=== PATIENT | female | born 1980 | race Caucasian/White ===

== ENCOUNTER 2021-07-20 12:54 | Emergency (ER) | payer OTHER, SELFPAY ==
[2021-07-20 13:16] VITALS: BP 106/74; PULSE 83; RESP 16; TEMP 36.3; O2SAT 100; BMI 26.6
[2021-07-20 14:24] VITALS: BP 98/61; PULSE 73; RESP 16; O2SAT 100
--- NOTE | 2021-07-20 15:13 | ED_ITS ---
HPI - Back Pain/Injury General Chief Complaint: Back Pain/Injury Stated Complaint: back pain lt side Time Seen by Provider: 07/20/21 14:47 History of Present Illness HPI Narrative: Patient is a erin 41-year-old female who presents with 10 days of ongoing back pain. It is pinpoint around rib number 2. It does not hurt with arm movement or breathing. But does radiate down and around the front She seen the chiropractor she has had massaging nothing seems to help. Patient has pinpoint pain. It has been there for 10 days. She gets muscle quivering on her chest sometimes. She calls it a contraction in her back. She has been doing heat. She is taking Flexeril and ibuprofen without significant relief. No significant shortness of breath or fever. She denies any injury. She denies any injury. She says she does lift weights but can not remember doing anything out of the ordinary. Related Data Home Medications Medication Instructions Recorded Confirmed cetirizine 10 mg tablet (Zyrtec) 10 mg PO DAILY PRN 11/26/20 07/13/21 escitalopram oxalate 20 mg tablet 20 mg PO DAILY 11/26/20 07/13/21 (Lexapro) Previous Rx's Medication Instructions Recorded ibuprofen 800 mg tablet 800 mg PO Q6-8H PRN #30 tab 11/26/20 cyclobenzaprine 10 mg tablet 10 mg PO TID PRN #30 tab 07/13/21 hydrocodone 5 mg-acetaminophen 325 1 tab PO Q6H PRN #10 tab 07/20/21 mg tablet methocarbamol 750 mg tablet 1,500 mg PO Q8H PRN #20 tab 07/20/21 Allergies Allergy/AdvReac Type Severity Reaction Status Date / Time No Known Drug Allergies Allergy Unverified 07/13/21 09:33 Review of Systems Review of Systems Narrative: GENERAL: Denies chills,fever HEENT: Denies throat pain RESPIRATORY: Denies dyspnea, cough, wheezing CARDIOVASCULAR: Denies chest pain, palpitations GASTROINTESTINAL: Denies nausea, vomiting MUSCULOSKELETAL: See HPI SKIN: No rash, no laceration, no pruritus NEUROLOGIC: Denies weakness, dizziness, headache, numbness 8 point review of systems is negative except for those stated above and HPI Patient History Medical History OCD (obsessive compulsive disorder) Surgical History Status post section (~2012) Status post cholecystectomy (~02/1998) Family History Father Heart disease Mental health disorder Mother No problems noted. Social History Smoking Status: Never smoker Smoking Status: Never smoker Exam Initial Vital Signs Initial Vital Signs: Vital Signs Temperature 97.4 F L 07/20/21 13:16 Pulse Rate 83 07/20/21 13:16 Respiratory Rate 16 07/20/21 13:16 Blood Pressure 106/74 07/20/21 13:16 Pulse Oximetry 100 07/20/21 13:16 GENERAL: Alert well-appearing 41-year-old female in no acute distress. HEENT: Head atraumatic,EOMI, pupils reactive, face symmetric, moist mucous membranes CARDIOVASCULAR: Regular rate and rhythm without murmurs, rubs or gallops. RESPIRATORY: Breath sounds equal bilaterally, no wheezes rales or rhonchi. BACK: Spasm and pain reproducible left rib 2. No vertebral tenderness or step- off. EXTREMITIES: Normal range of motion, no clubbing or edema. Neurovascularly intact NEUROLOGICAL: Alert and oriented x4. SKIN: Warm, dry, no laceration, no petechiae, no rashes or lesions. Course Orders Ordered: Discontinued Medications Ketorolac Tromethamine (Ketorolac 30 Mg/Ml Vial) 30 mg IM NOW ONE Stop: 07/20/21 15:13 Last Admin: 07/20/21 15:32 Dose: 30 mg Documented by: [email or web address] Vital Signs Vital signs: Vital Signs - 8 hr 07/20/21 13:16 07/20/21 14:24 Temperature 97.4 F L Pulse Rate 83 73 Respiratory Rate 16 16 Blood Pressure 106/74 98/61 Pulse Oximetry 100 100 MDM - Back Pain/Injury MDM Narrative Medical decision making narrative: Patient has been having pain ongoing for last 10 days. It is reproducible pinpoint. Bedside attempt at reducing her rib. Patient really had no improvement. Most likely muscle spasm. She denies any injury no need for imaging. She is frustrated that it is not getting any better. She has deep massage scheduled for this week she has to chiropractor appointments. We discussed topical ointments such as CBD and arnica cream, along with possibly acupuncture. If this continues may require more of a workup. Will switch up her medications for now. Discharge Plan Departure Patient Disposition: Home Clinical Impression: Thoracic back pain, Muscle spasm Instructions: DI for Back Spasm, Thoracic Back Pain Activity Restrictions/Additional Instructions: *You have been diagnosed with muscle spasm *What to do: You are doing all the right things. Continue to go to the chiropractor, try acupuncture may need physical therapy. Continue with saw his light stretching *Continue to take medications as directed--> [facility] Methocarbamol 1500 mg every 8 hours if needed for muscle spasm Ibuprofen 600 mg every 6 hours if needed for hblo-vj-oynvpboj pain [place] 1 tablet every 6 hours if needed for severe pain *Follow up with your primary care provider in 2-3 days or call [phone] *Return to ER if you should have increasing pain shortness of breath[or] any new, worsening or concerning symptoms CONTROLLED SUBSTANCE DISCHARGE (Narcotoic/benzodiazepine/Flexeril/Phenergan) 1. You have been prescribed narcotic medications, it does have acetaminophen/Tylenol/paracetamol in it, DO NOT TAKE MORE THAN 4,00mg in 24 hours of Tylenol. TRAMADOL DOES NOT CONTAIN TYLENOL 2. Please understand that we cannot provide further refills of narcotics, benzodiazepines or controlled substances through the ED and her pain management will need to be through your provider. 3. While on these medications you cannot drive or operate heavy machinery. 4. You cannot sign legal documents or perform any duties such as this. 5. As long as you're taking opiate pain medications he should also be taking a stool softener such as Colace, Dulcolax, MiraLAX or prune juice, to help avoid constipation. Prescriptions: New hydrocodone-acetaminophen 5-325 mg tablet 1 tab PO Q6H PRN (Reason: pain) Qty: 10 0RF methocarbamol 750 mg tablet 1,500 mg PO Q8H PRN (Reason: muscle spasm) Qty: 20 0RF No Action escitalopram oxalate [Lexapro] 20 mg tablet 20 mg PO DAILY 0RF cetirizine [Zyrtec] 10 mg tablet 10 mg PO DAILY PRN0RF ibuprofen 800 mg tablet 800 mg PO Q6-8H PRN (Reason: pain) Qty: 30 0RF cyclobenzaprine 10 mg tablet 10 mg PO TID PRN (Reason: back pain) Qty: 30 0RF Referrals: Damion Perez MD [Primary Care Provider] -
[2021-07-20] MEDS: KETOROLAC 30 MG/ML VIAL IM (15:32)
== END 2021-07-20 16:16 | disposition home or self-care (01) ==
PROVIDERS: Emergency Provider Emergency Medicine; PCP Internal Medicine
DX: M54.6 Pain in thoracic spine (principal); M62.830 Muscle spasm of back
CPT/HCPCS: 96372; 99283; J1885

== ENCOUNTER → 2021-08-12 10:32 | Outpatient (CLI) | payer OTHER, SELFPAY ==
[2021-08-12 11:33] LABS: Add Manual Diff / Slide Review NO; Basophils Absolute Auto 0 /uL (0-100); Basophils Percent Auto 0.5 % (0-2); Eosinophils Absolute Auto 0 /uL (0-450); Eosinophils Percent Auto 0.4 % (2-4); Hematocrit 38.5 % (36-46); Lymphocytes Absolute Auto 1500 /uL (1100-4500); Lymphocytes Percent Auto 30.6 % (25-40); Mean Corpuscular HGB Conc 33.7 % (30-36); Mean Corpuscular Volume 85.9 fL (80-100); Monocytes Absolute Auto 300 /uL (0-900); Monocytes Percent Auto 6.9 % (3-14); Neutrophils Absolute Auto 3000 /uL (1500-7000); Neutrophils Percent Auto 61.6 % (50-75); Platelet Count 207 X10^3/uL (150-400); Red Blood Cell Count 4.48 X10^6/uL (4.0-5.2); Red Cell Distribution Width 12.5 % (11.6-14.8); White Blood Cell Count 4.9 X10^3/uL (4.5-11.0)
[2021-08-12 11:42] LABS: Appearance Urine UA CLEAR; Bilirubin Urine UA NEGATIVE (NEGATIVE); Color Urine UA YELLOW; Glucose Urine UA NEGATIVE (Negative); Ketones Urine UA NEGATIVE (NEGATIVE); Leukocyte Esterase Urine UA NEGATIVE (NEGATIVE); Nitrite Urine UA NEGATIVE (Negative); Occult Blood Urine UA NEGATIVE (Negative); Protein Urine UA NEGATIVE (Negative); Specific Gravity Urine UA <=1.005 (1.000-1.035); Urobilinogen Urine UA 0.2 E.U./dL (0.2)
[2021-08-12 11:51] LABS: Alanine Aminotransferase 30 IU/L (<35); Albumin 4.8 g/dL (3.5-5.0); Albumin Globulin Ratio 1.6 (1.0-2.8); Alkaline Phosphatase 37 U/L (38-126); Aspartate Aminotransferase 36 IU/L (14-36); BUN Creatinine Ratio 19.3 (6-22); Bilirubin Total 0.6 mg/dL (0.2-1.3); Blood Urea Nitrogen 17 mg/dL (7-17); Calcium 9.1 mg/dL (8.4-10.2); Carbon Dioxide 30 mmol/L (22-32); Chloride 102 mmol/L (98-107); Cholesterol 206 mg/dL (140-199); Estimated Glomerular Filt Rate > 60 mL/min (>60); Glucose 102 mg/dL (70-100); HDL Cholesterol 57 mg/dL (40-60); HEMOLYSIS < 15 (0-50); LDL Cholesterol Calculated 133 mg/dL (<100); Potassium 4.3 mmol/L (3.4-5.1); Sodium 138 mmol/L (137-145); Total Protein 7.8 g/dL (6.3-8.2); Triglycerides 80 mg/dL (35-150)
[2021-08-12 11:54] LABS: Bacteria Urine None Seen; Culture Indicated Urine Cult Not Indicated; RBC Urine None Seen (0-5/HPF); Urine Comments Microscopic Normal; WBC Urine None Seen (0-5/HPF)
[2021-08-12 13:11] LABS: Free T4, Direct Thyroxine 0.86 ng/dL (0.78-2.19)
[2021-08-12 13:25] LABS: Thyroid Stimulating Hormone 1.42 uIU/mL (0.47-4.68)
== END ==
PROVIDERS: PCP Internal Medicine; Referring Provider Internal Medicine; Visit Provider Internal Medicine
DX: E03.9 Hypothyroidism, unspecified (principal); G47.10 Hypersomnia, unspecified; Z13.220 Encounter for screening for lipoid disorders; Z13.6 Encounter for screening for cardiovascular disorders; R35.89 Other polyuria
CPT/HCPCS: 36415; 80053; 80061; 81001; 84439; 84443; 85025

== ENCOUNTER → 2021-08-17 16:52 | Outpatient (CLI) | payer OTHER, SELFPAY ==
--- NOTE | 2021-08-17 16:54 | DI.RAD.S_ITS ---
PROCEDURE: XR THORACIC SPINE 3V INDICATIONS: persistent mid back pain TECHNIQUE: 3 views of the thoracic spine were acquired. COMPARISON: None. FINDINGS: Bones: No fractures or dislocations. No suspicious bony lesions. 12 pairs of ribs are noted, and appear intact where visualized. Mild degenerative changes noted in the midthoracic spine. Soft tissues: No paravertebral stripe thickening. IMPRESSION: Mild multilevel degenerative disc disease. No fracture. No acute osseous lesion. If symptoms and/or clinical suspicion for pathology persists, evaluation with MRI should be considered for further assessment. Dictated by: Shantel Del Castillo MD, PhD on 08/18/2021 at 12:17 Approved by: Shantel Del Castillo MD, PhD on 08/18/2021 at 12:19
== END ==
PROVIDERS: PCP Internal Medicine; Referring Provider Internal Medicine; Visit Provider Internal Medicine
DX: M51.34 Other intervertebral disc degeneration, thoracic region (principal); M54.9 Dorsalgia, unspecified
CPT/HCPCS: 72072

== ENCOUNTER 2022-01-29 12:32 | Emergency (ER) | payer OTHER, SELFPAY ==
[2022-01-29 12:37] VITALS: BP 147/105; PULSE 85; RESP 18; TEMP 36.6; O2SAT 100; BMI 26.6
[2022-01-29] MEDS: KETOROLAC 30 MG/ML VIAL IM (12:48)
--- NOTE | 2022-01-29 14:50 | ED_ITS ---
HPI - Extremity Problem <Tawnya Hansen, [facility] - Last Filed: 01/29/22 15:35> General Chief complaint: Extremity Problem,Nontraumatic Stated complaint: Severe pain sciatica on left side Time Seen by Provider: 01/29/22 14:35 Source: patient Mode of arrival: Ambulatory History of Present Illness HPI Narrative: This is a 41-year-old female presents to the emergency department with left- sided sciatica symptoms coming from her posterior left buttock and shoots down her left leg to her toes she says this happens after certain position changes and started flaring back up again yesterday after she twisted during a workout. She states this is likely piriformis syndrome and she has seen Dr. Perez about this. Patient states that she is been taking Percocet, and took the rest of her medication yesterday and now has run out, she saw Dr. Perez for her buttock pain last week and he diagnosed her with piriformis syndrome and gave her Percocet to use as needed, she states she is been taking ibuprofen with the Perc ocet and it has been helpful but now she is out in his requesting more. She denies any recent fall or trauma, denies any numbness or tingling, states that she has shooting pain from her posterior left buttock down her left leg without weakness, incontinence, groin numbness or tingling, for muscle weakness. Related Data Previous Rx's Medication Instructions Recorded ibuprofen 800 mg tablet 800 mg PO Q6-8H PRN pain #30 tabs 11/26/20 cetirizine 10 mg tablet (Zyrtec) 10 mg PO DAILY PRN allergy 11/12/21 symptoms #90 tabs escitalopram oxalate 20 mg tablet 20 mg PO DAILY #90 tabs 11/12/21 (Lexapro) methocarbamol 750 mg tablet 750 mg PO Q8H #30 tabs 01/25/22 oxycodone-acetaminophen 5 mg-325 See Rx Instructions PO Q4-6H PRN 01/25/22 mg tablet pain #20 tabs gabapentin 100 mg capsule 100 mg PO TID PRN nerve pain #20 01/29/22 caps methocarbamol 750 mg tablet 750 mg PO Q8H PRN spasms #14 tabs 01/29/22 oxycodone-acetaminophen 5 mg-325 1 tab PO TID PRN pain #14 tabs 01/29/22 mg tablet (Percocet) prednisone 20 mg tablet 20 mg PO DAILY 5 days #5 tabs 01/29/22 Allergies Allergy/AdvReac Type Severity Reaction Status Date / Time No Known Drug Allergies Allergy Verified 01/29/22 12:43 Review of Systems <DONNY Grove - Last Filed: 01/29/22 15:35> Review of Systems Narrative: Review of systems is negative for acute abnormalities unless otherwise noted in HPI Patient History <DONNY Grove - Last Filed: 01/29/22 15:35> Medical History OCD (obsessive compulsive disorder) Surgical History Anesthesia Status post section (~2012) Status post cholecystectomy (~02/1998) Family History Father Heart disease Mental health disorder Mother No problems noted. Grandfather Heart disease Grandmother Cancer Social History Smoking Status: Never smoker Smoking Status: Never smoker alcohol intake frequency: holidays/special occasions only Substance Use Type: does not use Exam <DONNY Grove - Last Filed: 01/29/22 15:35> Narrative Exam Narrative: Reviewed vitals signs and nursing notes. General: cooperative, comfortable, in no acute distress, well groomed HEENT: symmetrical facial expressions, moist mucous membranes MSK: moves all extremities, neurovascularly intact, no weakness, normal tone, bilateral lower extremities are equally strong, she is ambulatory, plantar extension and dorsiflexion present bilaterally without weakness, nontender over her lumbar spine, pain is exacerbated by certain positions and with leg lift. Skin: brisk capillary refill, without pallor or erythema Neuro: normal speech and cognition, A&O x3, ambulatory, clear speech Psych: mental status is grossly normal, congruent mood, normal affect, pleasant and cooperative Initial Vital Signs Initial Vital Signs: Vital Signs Temperature 97.8 F 01/29/22 12:37 Pulse Rate 85 01/29/22 12:37 Respiratory Rate 18 01/29/22 12:37 Blood Pressure 147/105 H 01/29/22 12:37 Pulse Oximetry 100 01/29/22 12:37 Oxygen Delivery Method 01/29/22 12:37 <Attila Cain DO - Last Filed: 01/29/22 16:20> Initial Vital Signs Initial Vital Signs: Vital Signs Temperature 97.8 F 01/29/22 12:37 Pulse Rate 85 01/29/22 12:37 Respiratory Rate 18 01/29/22 12:37 Blood Pressure 147/105 H 01/29/22 12:37 Pulse Oximetry 100 01/29/22 12:37 Oxygen Delivery Method 01/29/22 12:37 Course <DONNY Grove - Last Filed: 01/29/22 15:35> Orders Ordered: Discontinued Medications Gabapentin (Gabapentin 100 Mg Capsule) 100 mg PO NOW ONE Stop: 01/29/22 14:43 Last Admin: 01/29/22 15:05 Dose: 100 mg Documented By: ANNE Ketorolac Tromethamine (Ketorolac 30 Mg/Ml Vial) 30 mg IM NOW ONE Stop: 01/29/22 12:47 Last Admin: 01/29/22 12:48 Dose: 30 mg Documented By: TAI Methocarbamol (Methocarbamol 500 Mg Tablet) 500 mg PO NOW ONE Stop: 01/29/22 14:43 Last Admin: 01/29/22 15:04 Dose: 500 mg Documented By: ANNE Oxycodone/Acetaminophen (Oxycodone/Acetaminophen 5/325 Tablet) 1 tab PO NOW ONE Stop: 01/29/22 14:45 Last Admin: 01/29/22 15:04 Dose: 1 tab Documented By: ANNE Prednisone (Prednisone 20 Mg Tablet) 40 mg PO NOW ONE Stop: 01/29/22 14:43 Last Admin: 01/29/22 15:04 Dose: 40 mg Documented By: BT Vital Signs Vital signs: Vital Signs - 8 hr 01/29/22 12:37 01/29/22 16:00 Temperature 97.8 F Pulse Rate 85 Pulse Rate [Bilateral Dorsalis Pedis] 72 Respiratory Rate 18 Blood Pressure 147/105 H Pulse Oximetry 100 Oxygen Delivery Method Room Air <Attila Cain DO - Last Filed: 01/29/22 16:20> Orders Ordered: Discontinued Medications Gabapentin (Gabapentin 100 Mg Capsule) 100 mg PO NOW ONE Stop: 01/29/22 14:43 Last Admin: 01/29/22 15:05 Dose: 100 mg Documented By: BT Ketorolac Tromethamine (Ketorolac 30 Mg/Ml Vial) 30 mg IM NOW ONE Stop: 01/29/22 12:47 Last Admin: 01/29/22 12:48 Dose: 30 mg Documented By: TAI Methocarbamol (Methocarbamol 500 Mg Tablet) 500 mg PO NOW ONE Stop: 01/29/22 14:43 Last Admin: 01/29/22 15:04 Dose: 500 mg Documented By: BT Oxycodone/Acetaminophen (Oxycodone/Acetaminophen 5/325 Tablet) 1 tab PO NOW ONE Stop: 01/29/22 14:45 Last Admin: 01/29/22 15:04 Dose: 1 tab Documented By: BT Prednisone (Prednisone 20 Mg Tablet) 40 mg PO NOW ONE Stop: 01/29/22 14:43 Last Admin: 01/29/22 15:04 Dose: 40 mg Documented By: BT Vital Signs Vital signs: Vital Signs - 8 hr 01/29/22 12:37 01/29/22 16:00 Temperature 97.8 F Pulse Rate 85 Pulse Rate [Bilateral Dorsalis Pedis] 72 Respiratory Rate 18 Blood Pressure 147/105 H Pulse Oximetry 100 Oxygen Delivery Method Room Air MDM - Extremity (Nontraumatic) <DONNY Grove - Last Filed: 01/29/22 15:35> MDM Narrative Medical decision making narrative: Patient presents with 3 days of worsening sciatica symptoms in her left leg which started at her posterior left buttock and shoots down her left leg to her toes with certain position changes that patient states she exacerbated with a twisting motion yesterday during her workout. She saw her primary care provider Dr. Perez who diagnosed her with piriformis syndrome and gave her prescription of muscle relaxers and Percocet which patient has run out of and is requesting more. Patient is without, trauma, and is afebrile. Given history and exam, suspect likely musculoskeletal etiology, they are nontoxic appearing with no ove rt risk factors for epidural hematoma or abscess. This is most likely lumbar radiculopathy with sciatica although patient does not have low back pain or tenderness over her lumbar spine. She is been using Motrin and Tylenol with her Percocet and states that it helped but her pain remains ongoing. Patient's symptoms improve with above therapies. I encouraged her to follow-up with Dr. Perez for referral to physical therapy for an evaluation. No overt evidence of critical cord compression and has a nonfocal near exam. Neurovascularly intact distally, no evidence of infection, peritoneal signs, hypertensive crisis, or abdominal pain with low suspicion for AAA. No weakness, incontinence, neurovascular or sensation changes, no concerning findings for caudal equina syndrome, lumbar fracture, without paresthesia, neuropathic pain, meningeal signs and fever. This could be a herniated disk, paraspinal or other muscle strain, ligamental injury, arthritic, nephrolithiasis/pyelonephritis, epidural abscess, chronic pain, and other diagnosis? considered less likely. Discharge Plan Departure Patient Disposition: Home Clinical Impression: Sciatica of left side without back pain Instructions: Sciatica, Neuropathic Pain, Lumbar Radiculopathy Activity Restrictions/Additional Instructions: *You have been diagnosed with nerve pain shooting down your left leg from your left hip. This is most likely sciatica, often times it comes from the lumbar nerve root, since you do not have low back pain, this is good news. Please continue taking ibuprofen 800 mg every 8 hours with food and water, take the steroid 1st thing in the morning with food and water and use topical pain adjunct if they are helpful. Please use the gabapentin for sharp nerve pain or when it is shooting, this can cause drowsiness, so does Percocet and methocarbamol so please combine carefully. Ice and heat might be helpful as well, try to avoid over straining, overdoing, and exertional activities while it is inflamed. Please follow-up with Dr. Perez and ask him for a referral to physical therapy for an evaluation. I hope you feel better soon, please take a stool softener while taking opiate medications. *What to do: *Please continue to take your regular medications as directed. [x] New medication prescriptions sent to your pharmacy: [[facility] ] [ ] New medication written as a paper prescription [ ] No new medications given *Please follow up with your primary care provider in 2-3 days, call for an appointment. Let them know you were seen in the Emergency Department and that we asked that you be seen for follow-up. We will electronically transmit a record of today's note if your PCP is in our system *If you do not have a primary care provider please contact [phone] to establish care with one of the [facility] primary care providers. *Return to Emergency Department if you should have any new, worsening, or concerning symptoms, such as [fever greater than 101F, chills, worsening pain, persistent vomiting or other bothersome symptoms]. Prescriptions: New oxycodone-acetaminophen [Percocet] 5-325 mg tablet 1 tab PO TID PRN (Reason: pain) Qty: 14 0RF methocarbamol 750 mg tablet 750 mg PO Q8H PRN (Reason: spasms) Qty: 14 0RF gabapentin 100 mg capsule 100 mg PO TID PRN (Reason: nerve pain) Qty: 20 0RF prednisone 20 mg tablet 20 mg PO DAILY 5 Days Qty: 5 0RF Rx Instructions: start tomorrow No Action ibuprofen 800 mg tablet 800 mg PO Q6-8H PRN (Reason: pain) Qty: 30 0RF escitalopram oxalate [Lexapro] 20 mg tablet 20 mg PO DAILY Qty: 90 3RF cetirizine [Zyrtec] 10 mg tablet 10 mg PO DAILY PRN (Reason: allergy symptoms) Qty: 90 3RF oxycodone-acetaminophen 5-325 mg tablet See Rx Instructions PO Q4-6H PRN (Reason: pain) Qty: 20 0RF Rx Instructions: 1-2 TABS PO Q4-6H PRN; methocarbamol 750 mg tablet 750 mg PO Q8H Qty: 30 1RF Referrals: Damion Perez MD [Primary Care Provider] - Visit Report Forms: Patient Portal/API <Attila Cain, DO - Last Filed: 01/29/22 16:20> [facility] Dr Cain Co-Sign Statement: I was available for consultation during this patient's emergency department visit. This chart is signed by myself for administrative purposes only. I did not have direct contact with this patient during this visit. They were seen independently by the APC.
[2022-01-29] MEDS: predniSONE 20 MG TABLET 40 MG PO (15:04)
[2022-01-29] MEDS: methocarbamoL 500 MG TABLET PO (15:04)
[2022-01-29] MEDS: OXYCODONE/ACETAMINOPHEN 5/325 TABLET 1 TAB PO (15:04)
[2022-01-29] MEDS: GABAPENTIN 100 MG CAPSULE PO (15:05)
[2022-01-29 16:00] VITALS: PULSE 72
== END 2022-01-29 16:03 | disposition home or self-care (01) ==
PROVIDERS: Emergency Provider Nurse Practitioner Critical Care Medicine; PCP Internal Medicine
DX: M54.32 Sciatica, left side (principal)
CPT/HCPCS: 96372; 99283; J1885

== ENCOUNTER 2022-06-02 10:52 | Emergency (ER) | payer OTHER, SELFPAY ==
--- NOTE | 2022-06-02 11:38 | DI.CT.S_ITS ---
PROCEDURE: CT HEAD/BRAIN WO CON INDICATIONS: head injury TECHNIQUE: Noncontrast 4.5 mm thick angled axial sections acquired from the foramen magnum to the vertex, with coronal and sagittal reformats. For radiation dose reduction, the following was used: automated exposure control, adjustment of mA and/or kV according to patient size. COMPARISON: None. FINDINGS: Image quality: Excellent. CSF spaces: Basal cisterns are patent. No extra-axial fluid collections. Ventricles are normal in size and shape. Brain: No midline shift. No intracranial masses or hemorrhage. Godinez-white matter interface is normal. Skull and face: Calvarium and visualized facial bones are intact, without suspicious lesions. Sinuses: Visualized sinuses and mastoids are clear. IMPRESSION: No acute intracranial hemorrhage is seen. No acute intracranial process is seen. Dictated by: Vidal Fitch M.D. on 06/02/2022 at 11:06 Approved by: Vidal Fitch M.D. on 06/02/2022 at 11:07
[2022-06-02 11:40] VITALS: BP 123/81; PULSE 43; RESP 18; TEMP 36.3; O2SAT 100; BMI 25.8
--- NOTE | 2022-06-02 13:08 | ED.HEATRA ---
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 Patient states that when she awoke she was not able to move anything in laid there fearing she was paralyzed for approximately 10 seconds. She states that she has a significant headache, denies midline neck pain but endorses bilateral soft tissue tenderness and soreness. Denies acute vision changes but states that everything feels slow and foggy. Endorses nausea without vomiting, has not had history of head injuries in the past. Related Data Previous Rx's Medication Instructions Recorded ibuprofen 800 mg tablet 800 mg PO Q6-8H PRN pain #30 tabs 11/26/20 cetirizine 10 mg tablet (Zyrtec) 10 mg PO DAILY PRN allergy 11/12/21 symptoms #90 tabs escitalopram oxalate 20 mg tablet 20 mg PO DAILY #90 tabs 11/12/21 (Lexapro) methocarbamol 750 mg tablet 750 mg PO Q8H #30 tabs 01/25/22 oxycodone-acetaminophen 5 mg-325 See Rx Instructions PO Q4-6H PRN 01/25/22 mg tablet pain #20 tabs gabapentin 100 mg capsule 100 mg PO TID PRN nerve pain #20 01/29/22 caps methocarbamol 750 mg tablet 750 mg PO Q8H PRN spasms #14 tabs 01/29/22 oxycodone-acetaminophen 5 mg-325 1 tab PO TID PRN pain #14 tabs 01/29/22 mg tablet (Percocet) dexamethasone 4 mg tablet 8 mg PO .once #2 tabs 06/02/22 methocarbamol 750 mg tablet 750 mg PO Q8H PRN muscle spasm #30 06/02/22 tabs ondansetron HCl 4 mg tablet 4 mg PO Q8HR PRN nausea and 06/02/22 vomiting 3 days #10 tabs Allergies Allergy/AdvReac Type Severity Reaction Status Date / Time No Known Drug Allergies Allergy Verified 01/29/22 12:43 Review of Systems <DONNY Grove - Last Filed: 06/02/22 15:08> Review of Systems ROS Unobtainable: All systems reviewed & are unremarkable except as noted in HPI and below Patient History <DONNY Grove - Last Filed: 06/02/22 15:08> Medical History OCD (obsessive compulsive disorder) Surgical History Anesthesia Status post section (~2012) Status post cholecystectomy (~02/1998) Family History Father Heart disease Mental health disorder Mother No problems noted. Grandfather Heart disease Grandmother Cancer Social History Smoking Status: Never smoker Smoking Status: Never smoker alcohol intake frequency: holidays/special occasions only Substance Use Type: does not use Exam <DONNY Grove - Last Filed: 06/02/22 15:08> Narrative Exam Narrative: Reviewed vitals signs and nursing notes. General: cooperative, in no acute distress, well groomed calm, HEENT: symmetrical facial expressions, moist mucous membranes, neck is supple, PERRLA contusion to the occipital over scalp without skull depression, palpable fracture, hematoma, cervical spine tenderness to palpation, patient has full range of motion of her neck and spine. CV: regular rate and rhythm, warm extremities Respiratory: Without abnormal breath sounds, normal work of breathing, without tachypnea, hypoxia. GI: abdomen soft, nontender to palpation in all quadrants, nondistended, without masses, rebound tenderness or CVA tenderness bilaterally. MSK: moves all extremities, neurovascularly intact, no weakness, normal t, Tenderness to bilateral trapezius, without weaknessone Skin: brisk capillary refill, without rash or wound Neuro: normal speech and cognition, A&O x3, ambulatory, clear speech Initial Vital Signs Initial Vital Signs: Vital Signs Temperature 97.4 F L 06/02/22 11:40 Pulse Rate 43 L 06/02/22 11:40 Respiratory Rate 18 06/02/22 11:40 Blood Pressure 123/81 06/02/22 11:40 Pulse Oximetry 100 06/02/22 11:40 Oxygen Delivery Method Room Air 06/02/22 11:40 <Rayne Kline DO - Last Filed: 06/02/22 19:34> Initial Vital Signs Initial Vital Signs: Vital Signs Temperature 97.4 F L 06/02/22 11:40 Pulse Rate 43 L 06/02/22 11:40 Respiratory Rate 18 06/02/22 11:40 Blood Pressure 123/81 06/02/22 11:40 Pulse Oximetry 100 06/02/22 11:40 Oxygen Delivery Method Room Air 06/02/22 11:40 Course <DONNY Grove - Last Filed: 06/02/22 15:08> Orders Ordered: ED Orders 06/02/22 11:38 CT head/brain wo con Stat Discontinued Medications Acetaminophen (Acetaminophen 325 Mg Tablet) 650 mg PO NOW ONE Stop: 06/02/22 12:32 Last Admin: 06/02/22 13:53 Dose: 650 mg Documented By: RB Ketorolac Tromethamine (Ketorolac 10 Mg Tablet) 10 mg PO NOW ONE Stop: 06/02/22 12:32 Last Admin: 06/02/22 13:53 Dose: 10 mg Documented By: RB Lidocaine (Lidocaine Patch 1 Each Adh..Patch) 1 each TOP NOW ONE Stop: 06/02/22 12:32 Last Admin: 06/02/22 13:52 Dose: 1 each Documented By: RB Ondansetron HCl (Ondansetron 4 Mg Odt) 4 mg SL NOW ONE Stop: 06/02/22 12:32 Last Admin: 06/02/22 13:53 Dose: 4 mg Documented By: RB Vital Signs Vital signs: Vital Signs - 8 hr 06/02/22 11:40 06/02/22 13:14 Temperature 97.4 F L Pulse Rate 43 L 46 L Respiratory Rate 18 Blood Pressure 123/81 111/73 Pulse Oximetry 100 100 Oxygen Delivery Method Room Air Room Air <Rayne Kline DO - Last Filed: 06/02/22 19:34> Orders Ordered: ED Orders 06/02/22 11:38 CT head/brain wo con Stat Discontinued Medications Acetaminophen (Acetaminophen 325 Mg Tablet) 650 mg PO NOW ONE Stop: 06/02/22 12:32 Last Admin: 06/02/22 13:53 Dose: 650 mg Documented By: RB Ketorolac Tromethamine (Ketorolac 10 Mg Tablet) 10 mg PO NOW ONE Stop: 06/02/22 12:32 Last Admin: 06/02/22 13:53 Dose: 10 mg Documented By: RB Lidocaine (Lidocaine Patch 1 Each Adh..Patch) 1 each TOP NOW ONE Stop: 06/02/22 12:32 Last Admin: 06/02/22 13:52 Dose: 1 each Documented By: RB Ondansetron HCl (Ondansetron 4 Mg Odt) 4 mg SL NOW ONE Stop: 06/02/22 12:32 Last Admin: 06/02/22 13:53 Dose: 4 mg Documented By: RB Vital Signs Vital signs: Vital Signs - 8 hr 06/02/22 11:40 06/02/22 13:14 Temperature 97.4 F L Pulse Rate 43 L 46 L Respiratory Rate 18 Blood Pressure 123/81 111/73 Pulse Oximetry 100 100 Oxygen Delivery Method Room Air Room Air MDM - Head Injury <CELIA GroveP - Last Filed: 06/02/22 15:08> Imaging Data CT scan - head: Radiologist's Impression: Signed Patient: Beth Peña MR#: [id number] : 1980 Acct:[id number] Age/Sex: 42 / F Date of Service: 06/02/22 Loc: ED Accession Number: [id number] ?? Procedure: CT head/brain wo con Ordering Provider: Rayne Kline D.O. PROCEDURE:? CT HEAD/BRAIN WO CON ? INDICATIONS:? head injury ? TECHNIQUE:? Noncontrast 4.5 mm thick angled axial sections acquired from the foramen magnum to the vertex, with coronal and sagittal reformats.? For radiation dose reduction, the following was used:? automated exposure control, adjustment of mA and/or kV according to patient size.? ? COMPARISON:? None. ? FINDINGS:? Image quality:? Excellent.? ? CSF spaces:? Basal cisterns are patent.? No extra-axial fluid collections.? Ventricles are normal in size and shape.? ? Brain:? No midline shift.? No intracranial masses or hemorrhage.? Godinez-white matter interface is normal.? ? Skull and face:? Calvarium and visualized facial bones are intact, without suspicious lesions.? ? Sinuses:? Visualized sinuses and mastoids are clear.? ? IMPRESSION:? No acute intracranial hemorrhage is seen.? ? No acute intracranial process is seen.? ? ? Dictated by: Vidal Fitch M.D. on 06/02/2022 at 11:06 ? ? Approved by: Vidal Fitch M.D. on 06/02/2022 at 11:07 ? MDM Narrative Medical decision making narrative: Chief Complaint: head ijury Independent historian: Patient Differential diagnoses include but are not limited to: Concussion, whiplash, intracranial hemorrhage, skull fracture, ligamental injury, muscular sprain/strain I have independently reviewed the patient's vital signs and nursing notes as well as prior records if available. Pertinent lab findings reviewed: No lab work is indicated today Pertinent Imaging reviewed: CT have ruled out via [place] CT rule, nexus criteria ruled out for C-spine CT, CT head ordered due to exam of patient was concerns for intracranial injury CT head without acute intracranial process, contusion palpable to the occiput of her skull only without fluctuance Course of care: Medications for concussion and pain ordered at 1230 for patient's symptoms, At 13:45, patient's medications were not available yet, ask for nursing care to please treat the patient for her pain when available Patient's pain medication was given at 13:53 At 14:15, she reports feeling better but still has considerable brain fog, headache, has slow speech, and is ambulatory with steady gait onto occasions. She wishes to go home, does not have nausea vomiting. I have prescribed for her dexamethasone as well but nursing staff is not available to treat her with this at this time, we will prescribe this follow-up with her primary care provider if she has ongoing symptoms after 2 days. She was provided up-to-date information about return to activity and return to school/intellectual stimulation and understands to not progress her activity level until she is symptom-free. CT head is negative for acute intracranial abnormality, on exam, no focal neuro deficit This [id number] Social considerations that may affect disposition: none Questions are addressed and there is agreement with the plan and for follow-up. Patient is appropriate for outpatient management. MIPS: This encounter doesn't have any diagnosis' associated with MIPS criteria. Discharge Plan Departure Patient Disposition: Home Clinical Impression: Work related injury Closed head injury Qualifiers: Encounter type: initial encounter Qualified Code(s): S09.90XA - Unspecified injury of head, initial encounter Concussion with loss of consciousness Qualifiers: Encounter type: initial encounter Qualified Code(s): S06.0X9A - Concussion with loss of consciousness of unspecified duration, initial encounter Acute whiplash injury Qualifiers: Encounter type: initial encounter Qualified Code(s): S13.4XXA - Sprain of ligaments of cervical spine, initial encounter Instructions: Whiplash, Concussion, Closed Head Injury Activity Restrictions/Additional Instructions: *You have been diagnosed with a head injury with concussion. The CT scan does not show acute fracture bleeding in your brain or any dangerous evidence of head injury. You certainly have a concussion, and you have significant symptoms with a large bump. I encourage you to take the next 2 days off work and use plenty of caution with progression of your activity level both intellectually and physically. Remember to keep your symptoms at a minimum by decreasing activity and stimulation. I am sorry that this happened, I am glad that you did not her yourself worse than you did. It may take your week or longer to start feeling better from whiplash part. I have given you some muscle relaxers to use as needed if your whiplash is terrible and is contributing your headache. Please use Tylenol and ibuprofen in conjunction every 6 hours to treat your pain and symptoms. You will likely not need more Zofran but if you have nausea, then it is certainly okay to take. Focused on staying hydrated and calm. I hope that you feel better as soon as possible. 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 :) [id number] *What to do: *Please continue to take your regular medications as directed. [ ] New medication prescriptions sent to your pharmacy: [ ] [ ] New medication written as a paper prescription [x ] No new medications given *Please follow up with your primary care provider in 2-3 days, call for an appointment. Let them know you were seen in the Emergency Department and that we asked that you be seen for follow-up. We will electronically transmit a record of today's note if your PCP is in our system *If you do not have a primary care provider please contact [phone] to establish care with one of the [facility] primary care providers. *Return to Emergency Department if you should have any new, worsening, or concerning symptoms, such as [fever greater than 101F, chills, worsening pain, persistent vomiting or other bothersome symptoms]. Prescriptions: New methocarbamol 750 mg tablet 750 mg PO Q8H PRN (Reason: muscle spasm) Qty: 30 0RF ondansetron HCl 4 mg tablet 4 mg PO Q8HR PRN (Reason: nausea and vomiting) 3 Days Qty: 10 0RF dexamethasone 4 mg tablet 8 mg PO .once Qty: 2 0RF No Action ibuprofen 800 mg tablet 800 mg PO Q6-8H PRN (Reason: pain) Qty: 30 0RF escitalopram oxalate [Lexapro] 20 mg tablet 20 mg PO DAILY Qty: 90 3RF cetirizine [Zyrtec] 10 mg tablet 10 mg PO DAILY PRN (Reason: allergy symptoms) Qty: 90 3RF oxycodone-acetaminophen 5-325 mg tablet See Rx Instructions PO Q4-6H PRN (Reason: pain) Qty: 20 0RF Rx Instructions: 1-2 TABS PO Q4-6H PRN; methocarbamol 750 mg tablet 750 mg PO Q8H Qty: 30 1RF oxycodone-acetaminophen [Percocet] 5-325 mg tablet 1 tab PO TID PRN (Reason: pain) Qty: 14 0RF methocarbamol 750 mg tablet 750 mg PO Q8H PRN (Reason: spasms) Qty: 14 0RF gabapentin 100 mg capsule 100 mg PO TID PRN (Reason: nerve pain) Qty: 20 0RF Referrals: Damion Perez MD [Primary Care Provider] - Stand Alone Forms: Patient Portal/API <Rayne Kline DO - Last Filed: 06/02/22 19:34> Cosign ED Attending Stevenature Attestation: I was immediately available in the department for consultation.
[2022-06-02 13:14] VITALS: BP 111/73; PULSE 46; O2SAT 100
[2022-06-02] MEDS: LIDOCAINE PATCH 1 EACH ADH..PATCH TOP (13:52)
[2022-06-02] MEDS: KETOROLAC 10 MG TABLET PO (13:53)
[2022-06-02] MEDS: ACETAMINOPHEN 325 MG TABLET 650 MG PO (13:53)
[2022-06-02] MEDS: ONDANSETRON 4 MG ODT SL (13:53)
== END 2022-06-02 14:10 | disposition home or self-care (01) ==
PROVIDERS: Emergency Provider Nurse Practitioner Critical Care Medicine; PCP Internal Medicine
DX: S06.0X9A Concussion with loss of consciousness of unspecified duration, initial encounter (principal); S13.4XXA Sprain of ligaments of cervical spine, initial encounter; W18.30XA Fall on same level, unspecified, initial encounter; Y99.0 Civilian activity done for income or pay
CPT/HCPCS: 70450; 99283; 99284

== ENCOUNTER → 2022-10-25 | Outpatient (CLI) | payer OTHER, SELFPAY ==
--- NOTE | 2022-10-25 16:24 | DI.RAD.S_ITS ---
PROCEDURE: XR CERVICAL SPINE 2V OR 3V INDICATIONS: cervical radiculopathy TECHNIQUE: 3 view(s) of the cervical spine were acquired. COMPARISON: [facility], CR, XR THORACIC SPINE 3V, 08/17/2021, 16:55. FINDINGS: Bones: No fractures or dislocations to the T1 level. The lateral masses of C1 appear intact on the odontoid view. No suspicious bony lesions. Loss of lordosis which could be related to muscle spasm, rigidity or simply positional. Mild disc height loss at the C3-C4, C5-C6 and C6-C7 levels. Soft tissues: No prevertebral soft tissue swelling. IMPRESSION: Loss of lordosis and mild multilevel cervical spine disc degeneration. Dictated by: Dylan Mabry RR Interpreted: Armani Allen MD on 10/25/2022 at 20:59 Transcribed by: CARRILLO on 10/26/2022 at 8:19 Approved by: Armani Allen M.D. on 11/03/2022 at 1:56
[2022-10-25 17:11] LABS: Appearance Urine UA CLEAR; Bilirubin Urine UA NEGATIVE (NEGATIVE); Color Urine UA YELLOW; Glucose Urine UA NEGATIVE (Negative); Ketones Urine UA NEGATIVE (NEGATIVE); Leukocyte Esterase Urine UA NEGATIVE (NEGATIVE); Nitrite Urine UA NEGATIVE (Negative); Occult Blood Urine UA NEGATIVE (Negative); Protein Urine UA NEGATIVE (Negative); Specific Gravity Urine UA >=1.030 (1.000-1.035); Urobilinogen Urine UA 0.2 E.U./dL (0.2)
[2022-10-25 17:15] LABS: pH Urine UA 5.5 (4.5-8.0)
[2022-10-25 18:19] LABS: Alanine Aminotransferase 23 IU/L (<35); Albumin 4.2 g/dL (3.5-5.0); Albumin Globulin Ratio 1.2 (1.0-2.8); Alkaline Phosphatase 38 U/L (38-126); Aspartate Aminotransferase 36 IU/L (14-36); BUN Creatinine Ratio 19.1 (6-22); Bilirubin Total 0.6 mg/dL (0.2-1.3); Blood Urea Nitrogen 17 mg/dL (7-17); Calcium 9.1 mg/dL (8.4-10.2); Carbon Dioxide 27 mmol/L (22-32); Chloride 103 mmol/L (98-107); Estimated Glomerular Filt Rate > 60 mL/min (>60); Globulin 3.4 g/dL (1.7-4.1); Glucose 76 mg/dL (70-100); HEMOLYSIS < 15 (0-50); Potassium 3.7 mmol/L (3.4-5.1); Sodium 138 mmol/L (137-145); Total Protein 7.6 g/dL (6.3-8.2)
== END ==
PROVIDERS: PCP Internal Medicine; Referring Provider Internal Medicine; Visit Provider Internal Medicine
DX: M50.11 Cervical disc disorder with radiculopathy, high cervical region (principal); R35.89 Other polyuria
CPT/HCPCS: 36415; 72040; 80053; 81003

== ENCOUNTER → 2023-04-14 11:15 | Outpatient (CLI) | payer OTHER, SELFPAY ==
--- NOTE | 2023-04-14 11:16 | DI.MG.S_ITS ---
BILATERAL DIGITAL SCREENING MAMMOGRAM 3D/2D WITH CAD: 04/14/2023 CLINICAL: Routine screening. Family history of breast cancer. No prior exams were available for comparison. Both breasts are heterogeneously dense, which may obscure small masses (category c / 51-75% glandular tissue). Current study was also evaluated with a Computer Aided Detection (CAD) system. No significant masses, calcifications, or other findings are seen in either breast. IMPRESSION: NEGATIVE There is no mammographic evidence of malignancy. A 1 year screening mammogram is recommended. Based on the Tyrer Cuzick model (a risk assessment model) the patient's lifetime risk is 18.7% and her 10 year risk is 3.3%. According to the ACR, ACS, and NCCN guidelines, an annual breast MRI exam along with mammogram is recommended if the patient's lifetime risk is 20% or greater. This exam was interpreted at Station ID: [id number]. NOTE: For mammograms, a report in lay terms will be sent to the patient. Approximately 15% of breast malignancies will not be visualized mammographically. In the management of a palpable breast mass, a negative mammogram must not discourage biopsy of a clinically suspicious lesion. Electronically Signed By: Kayla villagomez/mary alice:04/19/2023 10:08:13 letter sent: Normal Exam ACR BI-RADS Category 1: Negative [id number]
== END ==
LOC: MAMMO 11:15
PROVIDERS: PCP Internal Medicine; Referring Provider Internal Medicine; Visit Provider Internal Medicine
DX: Z12.31 Encounter for screening mammogram for malignant neoplasm of breast (principal); Z80.3 Family history of malignant neoplasm of breast; R92.333 Mammographic heterogeneous density, bilateral breasts
CPT/HCPCS: 77063; 77067

== ENCOUNTER 2023-08-22 13:00 | Day surgery (SDC) | payer OTHER, SELFPAY ==
[2023-08-22] MEDS: LACTATED RINGERS 1,000 ML 42 ML IV ×2 (13:20→15:13)
[2023-08-22 13:28] VITALS: BP 110/69; PULSE 53; RESP 17; TEMP 36.7; O2SAT 100; BMI 28.1
--- NOTE | 2023-08-22 14:07 | PM.PREOP ---
Pre-operative Note COVID-19 COVID-19 status: Not tested Interval Note History & Physical reviewed/Exam performed by Physician: Yes Changes to H&P: No ASA Class (for procedural sedation): II
[2023-08-22] MEDS: ONABOTULINUMTOXINA 100 UNIT VIAL 40 UNIT INJ (14:37)
[2023-08-22] MEDS: BUPIVACAINE 0.5% W/ EPI (PF) 10 ML VIAL INJ (14:40)
--- NOTE | 2023-08-22 14:46 | PM.OP.1 ---
Operative Date/Time/Diagnoses Date of procedure: 08/22/23 Time of procedure: 14:46 Pre-op diagnosis: Rectal bleeding Post-op diagnosis: same (Posterior midline anal fissure) Procedure & Clinicians Procedure: Examination under anesthesia Injection of botulinum toxin into the anal sphincter muscle Same procedure as scheduled: Yes Surgeon: Mert Hunt Anesthesia Type: MAC +/- Operative Notes Procedure in detail: The patient was brought to the operating room and monitored anesthesia was induced. She was positioned in the lithotomy position. The perineum was prepped and draped in the usual fashion and a time-out was performed. A digital rectal exam was performed with a well lubricated finger. No masses were palpated in the sphincter tone was only slightly elevated from normal. Next 2 fingers were inserted to further dilate sphincter. The Hill-Wasserman retractor was inserted and the anoderm was inspected. There was a clear full-thickness posterior midline anal fissure measuring a proximally 6 mm in length. No other abnormalities were seen in the distal rectum and anal canal. At this point we injected Marcaine into the anoderm around the fissure and 20 units of botulinum toxin were injected into the left side of the anal sphincter muscle and 20 units of botulinum toxin were injected into the right side of the anal sphincter muscle. A little more Marcaine was injected. Dressings were applied. The patient was awakened and brought to recovery room. EBL: 5 mL Specimen: None Findings: Small posterior midline fissure Post-operative Condition: stable Disposition: PACU
[2023-08-22 14:50] VITALS: BP 100/51; PULSE 69; RESP 26; TEMP 36.5; O2SAT 99
[2023-08-22 15:24] VITALS: BP 115/77; PULSE 48; RESP 16; O2SAT 98
== END 2023-08-22 15:45 | disposition home or self-care (01) ==
PROVIDERS: PCP Internal Medicine; Referring Provider Surgery; Visit Provider Surgery
PROC: (CPT 45990; principal; 2023-08-22 13:45)
DX: K60.2 Anal fissure, unspecified (principal)
CPT/HCPCS: 46505; 81025; J0585; J2704

== ENCOUNTER 2023-09-15 11:31 | Day surgery (SDC) | payer OTHER, SELFPAY ==
[2023-09-14 10:55] VITALS: BMI 28.1
[2023-09-15 11:46] VITALS: BP 109/70; PULSE 50; RESP 16; TEMP 36.1; O2SAT 100; BMI 28.1
[2023-09-15] MEDS: LACTATED RINGERS 1,000 ML 42 ML IV (12:07)
--- NOTE | 2023-09-15 12:36 | P.HP_ITS ---
History of Present Illness History of Present Illness Date Patient Seen: 09/15/23 Time Patient Seen: 12:37 Chief complaint: [facility] Narrative: Chikis is here for her examination under anesthesia with Botox injection. See the office note from yesterday for details. [facility] Medical History (Updated 09/14/23 @ 09:29 by Mert Hunt MD) OCD (obsessive compulsive disorder) Surgical History (Updated 09/14/23 @ 10:57 by Louann Tellez RN) History of surgery (08/22/23) Anesthesia Status post section (~2012) Status post cholecystectomy (~02/1998) Family History Father Heart disease Mental health disorder Mother No problems noted. Grandfather Heart disease Grandmother Cancer Social History household members: spouse and family Smoking Status: Never smoker alcohol intake: never Meds Home Medications and Allergies Home Medications Medication Instructions Recorded Confirmed Type cetirizine 10 mg tablet (Zyrtec) 10 mg PO DAILY allergy symptoms 11/11/22 09/15/23 Rx #90 tabs escitalopram oxalate 20 mg tablet 20 mg PO DAILY #90 tabs 11/15/22 09/15/23 Rx (Lexapro) hydrocortisone acetate 25 mg 25 mg WA BID 10 days #24 ea 07/07/23 09/15/23 Rx rectal suppository (Anusol-HC) Allergies Allergy/AdvReac Type Severity Reaction Status Date / Time No Known Drug Allergies Allergy Verified 09/15/23 11:56 Exam Vital Signs (past 8 hours): - 09/15/23 11:46 Temperature 97 F L Pulse Rate 50 L Respiratory Rate 16 Blood Pressure 109/70 Pulse Oximetry 100 Oxygen Delivery Method Room Air Oxygen Delivery Method Room Air Const General: No acute distress Resp Effort & Inspection: normal respiratory effort Assessment & Plan Assessment and plan (1) Fissure in ano: Status: Acute Plan Proceed to the OR for injection of botulinum toxin and Marcaine. Time-Based Coding :: [TOTAL MINUTES] spent with patient and on the chart (including review of chart, obtaining history, exam, reviewing outside data, placing orders, documenting exam and treatment plan, and counseling patient) on [DATE].
[2023-09-15] MEDS: ACETAMINOPHEN IV 1,000 MG/100 ML VIAL 400 MG IV (12:45)
[2023-09-15] MEDS: ONABOTULINUMTOXINA 100 UNIT VIAL INJ (13:00)
--- NOTE | 2023-09-15 13:00 | SUR.OPER ---
Lithotomy on padded OR bed, head on pillow, arms secured on padded arm boards at <90 degrees abduction. Legs secured in padded yellow fins stirrups.
--- NOTE | 2023-09-15 13:13 | PM.OP.1 ---
Operative Date/Time/Diagnoses Date of procedure: 09/15/23 Time of procedure: 13:14 Pre-op diagnosis: Anal fissure Post-op diagnosis: same Procedure & Clinicians Procedure: Examination under anesthesia and injection of botulinum toxin into the anal sphincter Same procedure as scheduled: Yes Surgeon: Mert Hunt Anesthesia Type: MAC +/- Operative Notes Procedure in detail: The patient was brought to the operating room and sedation was administered by Dr. Monae. No antibiotics were indicated. The perineum was prepped and draped in the usual fashion and a time-out was performed. The fissure was visible in the posterior midline and was approximately 6 mm long. A digital rectal exam was performed with a well lubricated finger. The anal sphincter was dilated to rule out 2 fingers. Some Marcaine was injected around the fissure and around the anus. Next, a total of 100 units of botulinum toxin were injected into the anal sphincter in 4 different locations: The left anterior, left posterior, the right posterior and the right anterior quadrants of the muscle. Gauze and mesh underwear were applied. The patient was then awakened and brought to recovery room. Post-operative Condition: stable Disposition: PACU
[2023-09-15 13:14] VITALS: BP 92/50; PULSE 51; RESP 14; TEMP 36.3; O2SAT 100
[2023-09-15 13:19] VITALS: BP 95/53; PULSE 48; RESP 15; TEMP 36.3; O2SAT 99
[2023-09-15] MEDS: BUPIVACAINE 0.25% (PF) VIAL 30 ML INJ (13:20)
[2023-09-15 13:27] VITALS: BP 99/55; PULSE 49; RESP 13; TEMP 36.2; O2SAT 100
[2023-09-15 13:31] VITALS: BP 95/67; PULSE 51; RESP 12; TEMP 36.3; O2SAT 100
[2023-09-15 14:00] VITALS: BP 100/68; PULSE 52; RESP 18; O2SAT 100
== END 2023-09-15 14:05 | disposition home or self-care (01) ==
PROVIDERS: PCP Internal Medicine; Referring Provider Surgery; Visit Provider Surgery
PROC: (CPT 45990; principal; 2023-09-15 11:45)
DX: K60.1 Chronic anal fissure (principal)
CPT/HCPCS: 46505; 81025; J0136; J0585

== ENCOUNTER 2023-12-05 12:14 | Day surgery (SDC) | payer OTHER, SELFPAY ==
--- NOTE | 2023-12-05 | PATH_ITS ---
[facility] Accession Number: [id number] No. of containers..03 Tissue . 01 Material submitted: . PART A: gastrointestinal site - ANTRUM PART B: duodenum - DUODENUM PART C: colon - COLON . 01 Diagnosis: A. GASTRIC ANTRUM, BIOPSY: Gastric antral mucosa with mild chronic inflammation. Negative for Helicobacter organisms by immunohistochemistry. Negative for intestinal metaplasia. Negative for dysplasia or malignancy. . B. DUODENUM, BIOPSY: Duodenal mucosa with no diagnostic abnormality. Negative for active inflammation, features of sprue, dysplasia, or malignancy. . C. COLON, BIOPSY: Colonic mucosa with no diagnostic abnormality. Negative for active, chronic, and microscopic colitis. Negative for dysplasia and malignancy. . MRV 12/08/2023 1239 Local . 01 Electronically signed: . Abran aRin MD, PhD, Pathologist NPI- [id number] . 01 Gross description: . Part A: ANTRUM: Received in formalin are 2 fragment(s) of tijer[place], soft tissue measuring 0.2 x 0.2 x 0.2 cm to 0.4 x 0.2 x 0.2 cm submitted entirely in 1 cassette(s) Part B: DUODENUM: Received in formalin are 2 fragment(s) of tijer[place], soft tissue measuring 0.1 x 0.1 x 0.1 cm to 0.3 x 0.2 x 0.2 cm submitted entirely in 1 cassette(s) Part C: COLON: Received in formalin are 4 fragment(s) of tijer[place], soft tissue measuring 0.1 x 0.1 x 0.1 cm to 0.6 x 0.2 x 0.2 cm submitted entirely in 1 cassette(s) /SOLIS 12/06/2023 0142 Local . 01 Microscopic: . A. An immunohistochemical stain was performed to evaluate for Helicobacter organisms and is negative. The control stain showed appropriate reactivity. . * This test was developed and its performance characteristics determined by [facility]. It has not been cleared or approved by the U.S. Food and Drug Administration. The FDA has determined that such clearance or approval is not necessary. This test is used for clinical purposes. It should not be regarded as investigational or for research. . 01 Pathologist provided ICD-10: R19.8, K29.70 . 01 CPT . 289053, 380681, 130375, N73531 Specimen Comment: A courtesy copy of this report has been sent to [phone] Performed at: [address] [facility] [address], [place], [place] [id number] MD Avery Menjivar MD Phone: [phone]
[2023-12-05 12:46] VITALS: BP 106/73; PULSE 47; RESP 16; TEMP 36.1; O2SAT 100
[2023-12-05] MEDS: LACTATED RINGERS 1,000 ML 150 ML IV (12:48)
--- NOTE | 2023-12-05 13:09 | PM.HP.1 ---
History of Present Illness History of Present Illness Date Patient Seen: 12/05/23 Time Patient Seen: 13:09 Chief complaint: SDC Narrative: Chikis is a 43-year-old woman who presents for an EGD and colonoscopy due to rectal bleeding and chronic diarrhea. See prior notes for details. [facility] Medical History OCD (obsessive compulsive disorder) Surgical History History of surgery (08/22/23) Anesthesia Status post section (~2012) Status post cholecystectomy (~02/1998) Family History Father Heart disease Mental health disorder Mother No problems noted. Grandfather Heart disease Grandmother Cancer Social History household members: spouse and family Smoking Status: Never smoker alcohol intake: never Meds Home Medications and Allergies Home Medications Medication Instructions Recorded Confirmed Type cetirizine 10 mg tablet (Zyrtec) 10 mg PO DAILY allergy symptoms 11/11/22 12/05/23 Rx #90 tabs escitalopram oxalate 20 mg tablet 20 mg PO DAILY #90 tabs 11/15/22 12/05/23 Rx (Lexapro) Allergies Allergy/AdvReac Type Severity Reaction Status Date / Time No Known Drug Allergies Allergy Verified 12/05/23 12:30 Exam Vital Signs (past 8 hours): - 12/05/23 12:46 Temperature 97.0 F L Pulse Rate 47 L Respiratory Rate 16 Blood Pressure 106/73 Pulse Oximetry 100 Oxygen Delivery Method Room Air Oxygen Delivery Method Room Air Const General: No acute distress Resp Effort & Inspection: normal respiratory effort Assessment & Plan Assessment and plan (1) Chronic diarrhea: Status: Acute (2) Rectal bleeding: Status: Acute Plan EGD and colonoscopy Time-Based Coding :: [TOTAL MINUTES] spent with patient and on the chart (including review of chart, obtaining history, exam, reviewing outside data, placing orders, documenting exam and treatment plan, and counseling patient) on [DATE].
[2023-12-05 13:47] VITALS: BP 100/52; PULSE 57; RESP 14; TEMP 36.3; O2SAT 6
[2023-12-05 13:52] VITALS: BP 94/55; PULSE 54; RESP 14; O2SAT 96
--- NOTE | 2023-12-05 13:52 | PM.OP.EC ---
Operative Date/Time/Diagnoses Date of procedure: 12/05/23 Time of procedure: 13:52 Pre-op diagnosis: Chronic diarrhea and rectal bleeding Post-op diagnosis: same Procedure & Clinicians Study performed: EGD and colonoscopy Same procedure as scheduled: Yes Surgeon: Mert Hunt Procedure Notes Procedure in detail: Surgeon: Mert Hunt MD Anesthesia: Sapphire Kim CRNA Procedure in detail: A timeout was performed. A bite blocked was placed and monitors were attached to the patient. The patient was positioned in the left lateral decubitus position. Sedation was administered. Once the patient was sedated the endoscope was inserted through the bite block and passed through the esophagus and stomach and into the duodenum. The duodenal mucosa appeared normal. We took some random biopsies from the duodenal mucosa with cold forceps.. We then withdrew the scope into the stomach. The gastric mucosa appeared normal. We took some random biopsies from the antrum with cold forceps. The endoscope was retroflexed and no hiatal hernia was seen. The endoscope was straightned and withdrawn into the esophagus. No other abnormalities were noted. EGD findings: Normal EGD Next we repositioned the patient for a colonoscopy. A digital rectal exam was performed and was normal. The colonoscope was inserted and advanced to the cecum. The appendiceal orifice was identified and photographed. The scope was slowly withdrawn over greater than 6 minutes. The mucosa appeared normal. We took some random biopsies from the descending colon with the cold forceps. This was sent labeled as ?colon?. The scope was retroflexed in the rectum and no other abnormalities were noted. Colonoscopy findings: Normal colon Total procedural EBL: 5 mL Scope withdrawal time: 9 minutes Sedation minutes: 27 minutes Post-procedure Disposition: PACU
[2023-12-05 13:59] VITALS: BP 104/68; PULSE 59; RESP 16; TEMP 36.1; O2SAT 100
== END 2023-12-05 14:28 | disposition home or self-care (01) ==
PROVIDERS: PCP Internal Medicine; Referring Provider Surgery; Visit Provider Surgery
PROC: 0DJ08ZZ Inspection of Upper Intestinal Tract, Via Natural or Artificial Opening Endoscopic (ICD-10-PCS; CPT 43235; principal; 2023-12-05 13:15)
PROC: 0DJD8ZZ Inspection of Lower Intestinal Tract, Via Natural or Artificial Opening Endoscopic (ICD-10-PCS; CPT 45378; 2023-12-05 13:15)
DX: K62.5 Hemorrhage of anus and rectum (principal); R19.7 Diarrhea, unspecified; K29.50 Unspecified chronic gastritis without bleeding
CPT/HCPCS: 45380; 43239; J2704

== ENCOUNTER → 2024-01-20 14:45 | Outpatient (CLI) | payer OTHER, SELFPAY ==
--- NOTE | 2024-01-20 14:47 | DI.RAD.S_ITS ---
PROCEDURE: XR ABDOMEN MIN 2V INDICATIONS: diarrhea TECHNIQUE: 2 views of the abdomen were acquired. COMPARISON: None. FINDINGS: Surgical changes and devices: IUD projects over the mid pelvis. Cholecystectomy clips. Bowel: No pneumoperitoneum. The bowel gas pattern is normal. Soft tissues: No masses; visualized solid organ contours appear normal in size. No suspicious abdominal calcifications. Bones: No suspicious bony abnormalities. IMPRESSION: Non-obstructive bowel gas pattern. Dictated by: Shantel Del Castillo MD, PhD on 01/20/2024 at 15:42 Approved by: Sahntel Del Castillo MD, PhD on 01/20/2024 at 15:45
== END ==
PROVIDERS: PCP Internal Medicine; Referring Provider Internal Medicine; Visit Provider Internal Medicine
DX: K52.9 Noninfective gastroenteritis and colitis, unspecified (principal); Z90.49 Acquired absence of other specified parts of digestive tract; Z97.5 Presence of (intrauterine) contraceptive device
CPT/HCPCS: 74019

== ENCOUNTER → 2024-04-26 11:11 | Outpatient (CLI) | payer OTHER, SELFPAY ==
--- NOTE | 2024-04-26 11:12 | DI.MG.S_ITS ---
BILATERAL DIGITAL SCREENING MAMMOGRAM 3D/2D WITH CAD: 04/26/2024 CLINICAL: Routine screening. Family history of breast cancer. Comparison is made to exam dated: 04/14/2023 mammogram - [facility]. The breasts are heterogeneously dense, which may obscure small masses (category c / 51-75% glandular tissue). Current study was also evaluated with a Computer Aided Detection (CAD) system. No significant masses, calcifications, or other findings are seen in either breast. There has been no significant interval change. IMPRESSION: NEGATIVE There is no mammographic evidence of malignancy. A 1 year screening mammogram is recommended. Based on the Tyrer Cuzick model (a risk assessment model) the patient's lifetime risk is 19.3% and her 10 year risk is 3.7%. According to the ACR, ACS, and NCCN guidelines, an annual breast MRI exam along with mammogram is recommended if the patient's lifetime risk is 20% or greater. This exam was interpreted at Station ID: [id number]. NOTE: For mammograms, a report in lay terms will be sent to the patient. Approximately 15% of breast malignancies will not be visualized mammographically. In the management of a palpable breast mass, a negative mammogram must not discourage biopsy of a clinically suspicious lesion. Electronically Signed By: Essie lee/mary alice:04/26/2024 17:41:30 letter sent: Normal Exam ACR BI-RADS Category 1: Negative
== END ==
PROVIDERS: PCP Internal Medicine; Referring Provider Internal Medicine; Visit Provider Internal Medicine
DX: Z12.31 Encounter for screening mammogram for malignant neoplasm of breast (principal); Z80.3 Family history of malignant neoplasm of breast; R92.333 Mammographic heterogeneous density, bilateral breasts
CPT/HCPCS: 77063; 77067

== ENCOUNTER → 2024-06-28 12:02 | Outpatient (CLI) | payer OTHER, SELFPAY ==
[2024-06-28 12:23] LABS: Add Manual Diff / Slide Review NO; Basophils Absolute Auto 0 /uL (0-100); Basophils Percent Auto 0.3 % (0-2); Eosinophils Absolute Auto 0 /uL (0-450); Eosinophils Percent Auto 0.2 % (2-4); Hemoglobin 12.5 g/dL (12.0-16.0); Lymphocytes Absolute Auto 1600 /uL (1100-4500); Lymphocytes Percent Auto 21.8 % (25-40); Mean Corpuscular HGB Conc 33.9 % (30-36); Mean Corpuscular Hemoglobin 29.7 PG (26-34); Mean Corpuscular Volume 87.6 fL (80-100); Monocytes Absolute Auto 500 /uL (0-900); Monocytes Percent Auto 6.3 % (3-14); Neutrophils Absolute Auto 5300 /uL (1500-7000); Neutrophils Percent Auto 71.4 % (50-75); Platelet Count 202 X10^3/uL (150-400); Red Blood Cell Count 4.22 X10^6/uL (4.0-5.2); Red Cell Distribution Width 12.6 % (11.6-14.8); White Blood Cell Count 7.4 X10^3/uL (4.5-11.0)
[2024-06-28 12:56] LABS: Erythrocyte Sedimentation Rate 7 MM/HR (0-20)
[2024-06-28 13:37] LABS: Alanine Aminotransferase 22 IU/L (<35); Albumin 4.5 g/dL (3.5-5.0); Albumin Globulin Ratio 1.8 (1.0-2.8); Alkaline Phosphatase 36 U/L (38-126); Aspartate Aminotransferase 32 IU/L (14-36); BUN Creatinine Ratio 21.5 (6-22); Bilirubin Total 0.7 mg/dL (0.2-1.3); Blood Urea Nitrogen 20 mg/dL (7-17); C-Reactive Protein Quant < 0.5 mg/dL (<1.0); Calcium 9.3 mg/dL (8.4-10.2); Carbon Dioxide 26 mmol/L (22-32); Chloride 103 mmol/L (98-107); Estimated Glomerular Filt Rate > 60 mL/min (>60); Globulin 2.5 g/dL (1.7-4.1); Glucose 86 mg/dL (70-99); HEMOLYSIS < 15 (0-50); Potassium 4.4 mmol/L (3.4-5.1); Sodium 136 mmol/L (137-145)
[2024-06-28 14:05] LABS: TSH w/ Reflex to FT4 1.68 uIU/mL (0.47-4.68)
[2024-06-28 15:04] LABS: Follicle Stimulating Hormone 4.82 mIU/mL
== END ==
PROVIDERS: PCP Internal Medicine; Referring Provider Internal Medicine; Visit Provider Internal Medicine
DX: N95.9 Unspecified menopausal and perimenopausal disorder (principal); R63.5 Abnormal weight gain; Z79.899 Other long term (current) drug therapy
CPT/HCPCS: 36415; 80053; 83001; 84443; 85025; 85651; 86140